=== PATIENT | female | born 1975 | race Caucasian/White ===

== ENCOUNTER → 2018-01-10 | Outpatient (CLI) | payer OTHER ==
[~2018-01-10] MED LIST: HYDR2TAB74 PO; IBUP800T37 PO
--- NOTE | 2018-01-10 09:18 | RADIOLOGY IMAGING REPORT ---
FACILITY: [facility] PATIENT NAME: Bob Billings : 1975 MR: [id number] V: [id number] EXAM DATE: ORDERING PHYSICIAN: NELLY LACY TECHNOLOGIST: Location: Patient: Bob Billings : 1975 Visit/Account:[id number] Date of Sevice: 01/10/2018 THYROID HISTORY: TSH, anxious, vision changes COMPARISON: None. FINDINGS: SIZE: Right lobe: 3.8 x 2.4 x 1.8 cm Left lobe: 3.1 x 1.4 x 1.7 cm Isthmus: 6 mm PARENCHYMA: Heterogeneous NODULES: Right lobe: * Three solid well-circumscribed nodules were identified in the right lobe all measuring less than 1 cm. The largest measures 7 mm in diameter Left lobe: * There is a solid well-circumscribed hypoechoic nodule in the inferior left lobe measuring 1.2 cent ers in diameter Isthmus: * There is a 9.7 mm relatively well-circumscribed nodule of mixed echogenicity right-sided isthmus VASCULARITY: Within normal limits. ADDITIONAL FINDINGS: None. IMPRESSION: There are bilateral thyroid nodules and right-sided isthmus nodule all measuring less than 1 cm other than the 1.2 cm well-circumscribed hypoechoic nodule inferior left lobe. REFERENCE: 2015 [place] [employer] Management Guidelines for Adult Patients with Thyroid Nodules and D ifferentiated Thyroid Cancer: The [place] [employer] Guidelines Task Force on Thyroid Nodul es and Differentiated Thyroid Cancer. SONOGRAPHIC PATTERNS: * Benign: Purely cystic nodules (no solid component); estimated risk of malignancy <1 percent; no bi opsy recommended. * Very Low Suspicion: Spongiform or partially cystic nodules without any of the sonographic features described in low, intermediate, or high suspicion patterns; estimated risk of malignancy <3 percent; consider FNA at > 2 cm (Observation without FNA is also a reasonable option). * Low Suspicion: Isoechoic or hyperechoic solid nodule, or partially cystic nodule with eccentric so lid areas, without microcalcification, irregular margin or ETE (extra-thyroidal extension), or taller than wide shape; estimated risk of malignancy 5-10 percent; recommend FNA at >1.5 cm. * Intermediate Suspicion: Hypoechoic solid nodule with smooth margins without microcalcifications, E TE (extra-thyroidal extension), or taller than wide shape; estimated risk of malignancy 10-20 percent ; recommend FNA at > 1 cm. * High Suspicion: Solid hypoechoic nodule or solid hypoechoic component of a partially cystic nodule with one or more of the following features: irregular margins (infiltrative, microlobulated), microc alcifications, taller than wide shape, rim calcifications with small extrusive soft tissue component, evidence of ETE (extra-thyroidal extension); estimated risk of malignancy >70-90 percent; recommend FNA at > 1 cm. NOTES: * Although a sonographically suspicious subcentimeter thyroid nodule without evidence of extrathyroi andry extension or sonographically suspicious lymph nodes may be observed with close sonographic follow -up rather than pursuing immediate FNA, patient age and preference may modify decision-making. A > 50% interval increase in nodule volume and/or development of new suspicious sonographic features are felt to be a valid reasons for potential re-aspiration of a nodule previously shown to have benig n FNA cytology. Report Dictated By: Alea Pearce MD at 01/10/2018 9:06 AM Report E-Signed By: Alea Pearce MD at 01/10/2018 9:14 AM WSN:[email or web address]
--- NOTE | 2018-01-10 14:52 | RADIOLOGY IMAGING REPORT ---
FACILITY: [facility] PATIENT NAME: JODY MAURICIO : [id number] MR: [id number] V: [id number] EXAM DATE: ORDERING PHYSICIAN: NELLY LACY TECHNOLOGIST: Marlee Win PROCEDURE:BILATERAL DIGITAL SCREENING MAMMOGRAM WITH CAD ASSISTED INTERPRETATION & 3D TOMOSYNTHESIS COMPARISON:Prior mammograms 01/06/17, 01/05/16, 12/29/15. INDICATIONS:SCREENING IMPLANTS FINDINGS: There are bilateral subpectoral breast implants in place. There is no evidence of implant rupture or leakage. Small to moderate amount of fibroglandular tissue is seen throughout the breasts. The parenchymal pattern has remained stable allowing for difference in mammographic technique & patient positioning. There is no evidence of malignant appearing mass, malignant appearing calcifications or other secondary sign of malignancy in either breast. DIAGNOSTIC CATEGORY 2--BENIGN FINDING. RECOMMENDATIONS: ROUTINE MAMMOGRAM AND CLINICAL EVALUATION. IMPRESSION: BIRADS 2: Benign finding. No significant abnormality is seen. Dictated by: Alea Pearce M.D. on 01/10/2018 at 8:31 Transcribed by: LOUISE on 01/10/2018 at 8:37 Approved by: Alea Pearce M.D. on 01/10/2018 at 14:51 [facility]
== END ==
LOC: MAMO 00:26
PROVIDERS: ATTEND Family Medicine
DX: Z12.31 Encounter for screening mammogram for malignant neoplasm of breast (principal); E05.90 Thyrotoxicosis, unspecified without thyrotoxic crisis or storm; E04.2 Nontoxic multinodular goiter
CPT/HCPCS: 76536; 77063; 77067

== ENCOUNTER 2018-02-12 07:17 | Outpatient (RCR) | payer OTHER ==
--- NOTE | 2018-02-13 11:29 | RADIOLOGY IMAGING REPORT ---
FACILITY: [facility] [place] PATIENT NAME: Bob Billings : 1975 MR: [id number] V: [id number] EXAM DATE: ORDERING PHYSICIAN: [facility] TECHN[place]IST: [place] [facility] [place] : 1975 Visit/Account:[id number] Date of Sevice: 02/12/2018 THYROID IMAGE/UPTAKE MULTIPLE HISTORY: Hyperthyroidism TECHNIQUE: 385 microcuries I-123 were administered orally. Radioiodine uptake values were calculated at 24 hours following tracer administration. Gamma camera images were obtained of the neck in variou s orientations. COMPARISON: Thyroid ultrasound January 10, 2018 FINDINGS: Thyroid radioiodine uptake at 24 hours is 30.6% (normal range 15-40%) Thyroid radioiodine uptake at six hours is 19.4%. (Normal range 5-15%) Size and shape: Normal. Homogeneity: Normal. Nodules: None evident. IMPRESSION: Normal 24 hour thyroid uptake of 30.6% Abnormally high six hour thyroid uptake of 19.4% Report Dictated By: Alea Pearce MD at 02/13/2018 11:22 AM Report E-Signed By: Alea Pearce MD at 02/13/2018 11:24 AM WSN:[email or web address]
== END 2018-02-12 18:00 | disposition home or self-care (01) ==
LOC: NUC 07:17
PROVIDERS: ATTEND Internal Medicine
DX: E05.90 Thyrotoxicosis, unspecified without thyrotoxic crisis or storm (principal); E04.2 Nontoxic multinodular goiter
CPT/HCPCS: 78014; A9516

== ENCOUNTER → 2018-02-20 | Outpatient (CLI) | payer OTHER ==
--- NOTE | 2018-02-20 11:00 | RADIOLOGY IMAGING REPORT ---
FACILITY: [facility] PATIENT NAME: Bob Billings : 1975 MR: [id number] V: [id number] EXAM DATE: ORDERING PHYSICIAN: NELLY LACY TECHNOLOGIST: Location: [facility] Patient: Bob Billings : 1975 Visit/Account:[id number] Date of Sevice: 02/20/2018 Transvaginal pelvic ultrasound INDICATION: Hysterectomy COMPARISON: None Available FINDINGS: Uterus has been removed. No free fluid, mass or other abnormality is noted. Adnexal vasculature gino ears within normal limits. Right ovary measures 2.6 x 2.5 x 1.6 cm and shows normal blood flow and contains; there is a simple a ppearing anechoic 1.5 cm dominant follicle. Left ovary measures 2.5 x 1.8 x 1.4 cm and shows normal blood flow and contains a minimally complex c ystic lesion with internal echogenicity. This demonstrates mild surrounding hypervascularity and myranda sures 1.3 x 1.7 x 1.3 cm. IMPRESSION: 1. Post hysterectomy without acute pathology. 2. Mildly complex left ovarian 1.3 cm cyst Report Dictated By: Venkata Mosquera MD at 02/20/2018 10:53 AM Report E-Signed By: Venkata Mosquera MD at 02/20/2018 10:56 AM WSN:[email or web address]
== END ==
LOC: US 00:34
PROVIDERS: ATTEND Family Medicine
DX: N83.292 Other ovarian cyst, left side (principal); Z90.710 Acquired absence of both cervix and uterus
CPT/HCPCS: 76856

== ENCOUNTER 2018-04-04 08:33 | Outpatient (RCR) | payer OTHER ==
[2018-04-04 08:59] LABS: INR 1.01
--- NOTE | 2018-04-06 15:01 | RADIOLOGY IMAGING REPORT ---
[place] [facility] [place] NAME: Bob Billings : 1975 MR: [id number] V: [id number] EXAM DATE: ORDERING PHYSICIAN: NIKKI DOMINGO [place]CHN[place] [facility] [place] : 1975 Visit/Account:[id number] Date of Sevice: 04/06/2018 EXAMINATION: Ultrasound guided FNA of thyroid nodule at one site HISTORY: Multinodular thyroid gland. COMPARISON: None. PROCEDURE: Previous studies were reviewed. By real-time scanning today, the left thyroid dominant nodule nodule is mostly cystic, low suspicion, and 1.2 cm greatest diameter. It does not meet criteria for biopsy . The hypoechoic solid nodule in the right isthmus is intermediate suspicion, 10 mm diameter, and do es meet criteria for biopsy. Procedure benefits and risks were discussed with the patient and written consent was obtained. A gerald e out was performed prior to the procedure. The patient's neck was prepped and draped in a sterile fashion. Lidocaine one percent was used for s kin and deep soft tissue anesthesia. Nodule 1: Right isthmus solid hypoechoic nodule was localized with ultrasound. Using ultrasound willie nce, a 27 gauge needle was inserted percutaneously into the nodule. An aspirate was obtained which wa s placed onto slides for cytologic evaluation. Three additional pass was made into the nodule using similar technique. A portion of the additional aspirates were given to the biofuels research scientist to save for Afirma testing if needed. Preliminary evaluation of the aspirates by the pathologist demonstrates adequate cellularity for diag nosis. The patient tolerated the procedure well and there were no complications. IMPRESSION: Successful ultrasound-guided FNA biopsy of a right isthmus intermediate suspicion solid hypoechoic 10 mm nodule. Pathology results are pending. Report Dictated By: Belia Paiz MD at 04/06/2018 2:48 PM Report E-Signed By: Belia Paiz MD at 04/06/2018 2:56 PM WSN:[email or web address]
== END 2018-04-06 18:00 | disposition home or self-care (01) ==
LOC: US 08:33
PROVIDERS: ATTEND Internal Medicine
DX: E04.2 Nontoxic multinodular goiter (principal)
CPT/HCPCS: 10022; 36415; 76942; 85610; 88104; 88172

== ENCOUNTER → 2018-04-30 | Outpatient (CLI) | payer OTHER ==
--- NOTE | 2018-04-30 15:19 | RADIOLOGY IMAGING REPORT ---
FACILITY: [facility] PATIENT NAME: Bob Billings : 1975 MR: [id number] V: [id number] EXAM DATE: ORDERING PHYSICIAN: DC REY TECHNOLOGIST: Location: [facility] Patient: Bob Billings : 1975 Visit/Account:[id number] Date of Sevice: 04/30/2018 [facility] TRANSVAGINAL NON-OB HISTORY: UNSPECIFIED OVARIAN CYST, UNSPECIFIED SIDE TECHNIQUE: Transvaginal ultrasound pelvis. COMPARISON: February 20, 2018 FINDINGS: Uterus: Hysterectomy Ovaries: Right - 1.6 x 1.3 x 2.3 cm Left - 1.6 x 1.1 x 2.4 cm. There is a 1.1 cm simple left ovarian cyst Blood flow is documented in each ovary by duplex Doppler ultrasound. Adnexa: Grossly unremarkable. Free pelvic fluid: None. IMPRESSION: There is a 1.1 cm simple left ovarian cyst Report Dictated By: Alea Pearce MD at 04/30/2018 3:13 PM Report E-Signed By: Alea Pearce MD at 04/30/2018 3:16 PM WSN:[email or web address]
== END ==
LOC: RAD 10:58
PROVIDERS: ATTEND Obstetrics & Gynecology
DX: N83.292 Other ovarian cyst, left side (principal)

== ENCOUNTER 2018-11-07 19:36 | Emergency (ER) | payer OTHER ==
--- NOTE | 2018-11-07 20:24 | ER Report ---
History and Physical Time Seen By MD: 20:23 HPI/ROS CHIEF COMPLAINT: pain in calf/achilles while mowing the lawn HISTORY OF PRESENT ILLNESS: This is a 43 year old female. She was mowing the lawn and felt a pop with sudden pain in the lower calf. Can't walk now. Has been working with orthopedic surgery for evaluation of chronic pain in this area, and is waiting for [facility] to get an MRI scheduled, she has been calling them for several days and no return call yet. With this injury happening, she cant walk and has pain and was worried about achilles rupture. Normal sensation in the foot. Can move the foot around without weight, but cannot go up on her toes. Allergies: Coded Allergies: codeine (Verified Adverse Reaction, Intermediate, PANCRIATITIS, 11/07/18) Home Meds Reported Medications Methimazole (METHIMAZOLE) 5 Mg Tablet, 5 MG PO QDAY 11/07/18 Discontinued Scripts Ibuprofen (IBUPROFEN) 800 Mg Tablet, 1 TAB PO Q8H PRN for pain, #40 TAB 0 Refills TAKE WITH FOOD EVERY 8 HOURS Prov:DC REY MD 05/04/16 Hydromorphone Hcl (DILAUDID) 2 Mg Tablet, 1-2 TAB PO Q4-6H PRN for pain, #30 TAB 0 Refills Prov:DC REY MD 05/04/16 Reviewed Nurses Notes: Yes Hx Smoking: No Smoking Status: Never Smoker Hx Substance Use Disorder: No Hx Alcohol Use: Yes Constitutional Vital Sign - Last 24 Hours 11/07/18 11/07/18 11/07/18 11/07/18 20:20 20:21 20:24 20:30 Temp 99.0 Pulse 59 61 Resp 16 B/P (MAP) 125/69 (87) 125/69 114/62 (79) Pulse Ox 93 95 O2 Delivery Room Air 11/07/18 11/07/18 20:36 20:41 Pulse 61 59 Pulse Ox 91 92 Physical Exam General: Alert, worried, but otherwise no acute distress. Musculoskeletal: Can plantar and dorsiflex without resistance. Cannot plantar flex with resistance. Negative Macedo test, food does plantar flex with squeezing gastroc. Compared to left side and similar movement. Pain at distal achilles site, but not directly over calcaneous. Neuro: Normal sensation. Skin: Bruising over distal achilles site. Cardio: normal pulses and cap refill. Medical Decision Making EKG/Imaging Imaging INDICATION: pain, injury. DATE: 11/07/2018 8:43 PM. TECHNIQUE: ANKLE 3 VIEW MIN RIGHT COMPARISON: None FINDINGS: The screw anchors within the lateral malleolus. No evidence of fracture or dislocation. The Achilles tendon shadow appears grossly unremarkable, but there is a calcification within the tendon perhaps reflecting prior injury or history of tendinopathy. Mild midfoot degenerative findings. Small plantar calcaneal spur. IMPRESSION: The Achilles tendon is likely intact. Calcification within the tendon may reflect a history of tendinopathy or old injury. Report Dictated By: Kendrick Farr MD at 11/07/2018 8:43 PM ED Course/Re-evaluation ED Course Concern for achilles rupture even with normal Macedo test, could be partial rupture as well. Imaging negative for bony abnormality. Recommended continue using boot and crutches. Call [facility] tomorrow to follow-up on MRI because it sounds like this is the next step and would be best done at your orthopedic surgeons location, non-emergent tonight. Decision to Disposition Date: Nov 07, 2018 Decision to Disposition Time: 21:39 Depart Departure Latest Vital Signs Vital Signs Date Time Temp Pulse Resp B/P (MAP) Pulse Ox O2 Delivery O2 Flow Rate FiO2 11/07/18 20:41 59 92 11/07/18 20:30 114/62 (79) 11/07/18 20:24 99.0 16 Room Air Impression: Primary Impression: Achilles tendinitis, right leg Condition: Improved Disposition: HOME OR SELF-CARE Referrals: NELLY LACY DO (PCP) Patient Instructions: Achilles Tendinitis (ED) Additional Instructions: Follow-up with [facility] [place] for the MRI that needs to be done. Wear your boot and use crutches as needed. Exam tonight does not indicate a full rupture, but this is still possible. Elevation, ice, and use of over the counter pain medications. EARNEST MOYA MD Nov 07, 2018 20:24
[2018-11-07] MEDS ORDERED: METH5TAB87 PO (20:29)
[2018-11-07 20:30] VITALS: BP 114/62
--- NOTE | 2018-11-07 20:57 | RADIOLOGY IMAGING REPORT ---
FACILITY: [facility] PATIENT NAME: Bob Billings : 1975 MR: [id number] V: [id number] EXAM DATE: ORDERING PHYSICIAN: MARLENI HERNANDEZ TECHNOLOGIST: Location: [facility] [place] Patient: Bob Billings : 1975 Visit/Account:[id number] Date of Sevice: 11/07/2018 INDICATION: pain, injury. DATE: 11/07/2018 8:43 PM. TECHNIQUE: ANKLE 3 VIEW MIN RIGHT COMPARISON: None FINDINGS: The screw anchors within the lateral malleolus. No evidence of fracture or dislocation. The Achilles tendon shadow appears grossly unremarkable, but there is a calcification within the tendon perhaps reflecting prior injury or history of tendinopathy. Mild midfoot degenerative findings. Small plantar calcaneal spur. IMPRESSION: The Achilles tendon is likely intact. Calcification within the tendon may reflect a history of tendin opathy or old injury. Report Dictated By: Kendrick Farr MD at 11/07/2018 8:43 PM Report E-Signed By: Kendrick Farr MD at 11/07/2018 8:52 PM WSN:[id number]
== END 2018-11-07 22:10 | disposition home or self-care (01) ==
LOC: ER 20:42
DX: M76.61 Achilles tendinitis, right leg (principal)
CPT/HCPCS: 99283